=== PATIENT | male | born 1945 | race Caucasian/White ===

== ENCOUNTER 2017-08-01 05:55 | Day surgery (SDC) | payer OTHER ==
[2017-07-24 08:48] VITALS: BMI 26.4
[2017-08-01] MEDS ORDERED: ROPIVACAINE HCL 0.5% 30ML VIAL ONE (06:47)
[2017-08-01] MEDS ORDERED: MIDAZOLAM HCL 2 MG/2 ML SINGLE DOSE VIAL ONE ×3 (06:47→08:22)
[2017-08-01] MEDS ORDERED: DEXAMETHASONE SOD PHOSPHATE/PF 10 MG/ML SDV ONE (06:47)
[2017-08-01] MEDS ORDERED: BUPIVACAINE HCL/EPINEPHRINE/PF 30 ML VIAL IJ ONE (07:16)
[2017-08-01] MEDS ORDERED: EPINEPHrine 1:1,000 1 MG/1 ML - 30ML VIAL (INJECTION) ONE (07:16)
[2017-08-01] MEDS ORDERED: ONDANSETRON 4 MG/2 ML VIAL ONE (07:22)
[2017-08-01] MEDS ORDERED: KETOROLAC TROMETHAMINE 30 MG/1 ML VIAL ONE (07:22)
[2017-08-01] MEDS ORDERED: SUCCINYLCHOLINE CHLORIDE 200 MG/10 ML VIAL ONE (07:22)
[2017-08-01] MEDS ORDERED: ceFAZolin SODIUM 1 GM VIAL ONE (07:22)
[2017-08-01] MEDS ORDERED: LIDOCAINE HCL 2% JELLY (5 ML/TUBE) ONE (07:22)
[2017-08-01] MEDS ORDERED: DEXAMETHASONE SOD PHOSPHATE 4 MG/1 ML VIAL ONE (07:22)
[2017-08-01] MEDS ORDERED: PROPOFOL 20 ML ONE ×2 (07:22)
--- NOTE | 2017-08-01 07:33 | HP ---
History & Physical Update - History History: No Change - Physical Physical: No Change - Assessment Assessment: No Change - Plan Plan: No Change
[2017-08-01] MEDS ORDERED: ACETAMINOPHEN 325 MG TABLET (FP) PO PRN (08:32)
[2017-08-01] MEDS ORDERED: oxyCODONE HCL 5 MG TABLET PO PRN ×3 (08:32→08:57)
[2017-08-01] MEDS ORDERED: ONDANSETRON 4 MG/2 ML VIAL IVPUSH PRN (08:32)
[2017-08-01] MEDS ORDERED: LACTATED RINGERS SOLUTION 1,000 ML IV SCH (08:45)
[2017-08-01] MEDS ORDERED: oxyCODONE HCL 10 MG SUSTAINED ACTING TABLET PO ONE (08:57)
--- NOTE | 2017-08-01 09:00 | OP ---
Operative Note - Note: Operative Date: 08/01/17 Pre-Operative Diagnosis: Right shoulder rotator cuff tear Operation: RSA, Rotator cuff repair Post-Operative Diagnosis: Same as Pre-op Surgeon: Freddy Bolanos Anesthesiologist/SKI PATROLLER: Josiah Gomez Anesthesia: General
--- NOTE | 2017-08-01 09:00 | DS ---
Physical Examination Vital Signs: Vital Signs Temperature 97.7 F 08/01/17 06:41 Pulse Rate 82 08/01/17 06:41 Respiratory Rate 18 08/01/17 06:41 Blood Pressure 160/77 08/01/17 06:41 O2 Sat by Pulse Oximetry (%) 99 08/01/17 06:41 Discharge Summary Reason For Visit: ROTATOR CUFF TEAR RIGHT SHOULDER Condition: Good - Instructions Diet, Activity, Other Instructions: Post Operative Instructions: Shoulder Arthroscopy Dr Freddy Bolanos 1. Pain following a Shoulder Arthroscopy is variable and can be significant. Some patients will have more pain than others. You have been provided with a prescription for medication that contains a narcotic. You are not allowed to drive while on this medication. . Feel free to take medications such as Ibuprofen or Naprosyn in addition to the pain medicine if you do not have any problems with the NSAID class of medications. 2. Apply ice to the shoulder for 15 minutes every hour. You may continue this for as many days as necessary. 3. You may find sleeping on an incline (reclining chair) to be more comfortable for the first few days. 4. You must remain in your sling at all times except when showering. The only exception to this is to allow you to stretch your elbow a few times a day to prevent your hand and forearm from swelling. 5. You are not to use your arm to reach for anything, lift anything or carry anything until instructed otherwise. 6. You may remove the bandages in 48 hours. You may shower at that point. 7. Place band-aids on the sutures after your shower.Do not put any creams or lotions on the incision until after the sutures are removed. 8. Please call the office to schedule a visit to have your sutures removed. 9. If for any reason you believe you may have an infection or are concerned, please feel free to call me. I can be reached through our office number 24 hours a day. 10. Please call our office with any questions; we will review the surgical findings during your post-operative visit. Disposition: HOME - Home Medications Comprehensive Discharge Medication List: Ambulatory Orders Lisinopril/Hydrochlorothiazide [Lisinopril-Hctz 10-12.5 mg Tab] 1 each PO DAILY 07/24/17 Metformin Xr [Glucophage *Xr* -] 750 mg PO DAILY 07/24/17
[2017-08-01 10:38] VITALS: TEMP 98.5
[2017-08-01 10:43] VITALS: BP 146/71; PULSE 82
--- NOTE | 2017-08-02 14:12 | SURG ---
Surgery Metalizer Note Metalizer: Gwen Vaughn PA-C Date of Service: 08/01/17 Diagnosis: Right shoulder rotator cuff tear Procedure: RSA, Rotator cuff repair I was present for the entirety of the operative procedure. For further detail, please refer to operative report. Visit type - Case Type Case Type: Scheduled Admission - Emergency Emergency Visit: No - New patient This patient is new to me today: Yes Date on this admission: 08/02/17
--- NOTE | 2017-08-04 14:57 | PATH ---
Surgical Pathology Report Patient Name: JUSTINE CASTRO Med. Rec. #: [id number] /Age/Gender: 1945 (Age: 72) / M Account: [id number] Location: [facility] Taken: 08/01/2017 Received: 08/01/2017 Reported: 08/04/2017 Physicians: Freddy Bolanos M.D. Specimen(s) Received RIGHT SHOULDER SHAVINGS Clinical History Rotator cuff tear shoulder Final Diagnosis SHOULDER, RIGHT, ARTHROSCOPIC SHAVINGS: FIBROSYNOVIAL AND FIBROCARTILAGINOUS TISSUE. Electronically Signed Marnie Roe M.D. Gross Description Received in formalin, labeled "right shoulder shavings," is a 3.0 x 2.5 x 0.3 cm. aggregate of ng-yellow soft tissue fragments. A inside technical sales representative portion is submitted in one cassette. /08/01/201708/01/2017
== END 2017-08-01 10:25 | disposition home or self-care (01) ==
LOC: FASU 05:55
PROVIDERS: ATTEND Orthopaedic Surgery
PROC: 0LB14ZZ Excision of Right Shoulder Tendon, Percutaneous Endoscopic Approach (ICD-10-PCS; principal; 2017-08-01 08:16)
PROC: 0RNJ4ZZ Release Right Shoulder Joint, Percutaneous Endoscopic Approach (ICD-10-PCS; 2017-08-01 08:16)
DX: M75.101 Unspecified rotator cuff tear or rupture of right shoulder, not specified as traumatic (principal)
CPT/HCPCS: 88304-TC